=== PATIENT | female | born 1995 | race Caucasian/White ===

== ENCOUNTER 2018-11-15 19:37 | Observation (INO) ==
[2018-11-15] MEDS ORDERED: TYLENOL PO ONE (20:02)
[2018-11-15 20:21] LABS: BILIRUBIN URINE NEGATIVE (NEGATIVE); BLOOD URINE NEGATIVE (NEGATIVE); CLARITY SL. CLOUDY (CLEAR); COLOR YELLOW; GLUCOSE URINE NEGATIVE (NEGATIVE); KETONE URINE TRACE mg/dL (NEGATIVE); LEUKOCYTES URINE 2+ (NEGATIVE); NITRITE URINE POSITIVE (NEGATIVE); PH URINE 6.5; PROTEIN URINE 1+(30 mg/dL) mg/dL (NEGATIVE); SP GRAVITY URINE 1.015; UROBILINOGEN URINE 4 mg/dL
[2018-11-15 20:24] LABS: URINE BACTERIA 4+ /HFP; URINE CAST NONE SEEN /LPF; URINE CRYSTAL NONE SEEN /HPF; URINE EPITHELIAL CELLS <10 /HPF (<10); URINE RBC <10 /HPF (<10); URINE SOURCE CLEAN CATCH; URINE WBC 20-40 /HPF (<10); URINE YEAST NONE SEEN /HPF
[2018-11-15] MEDS ORDERED: NS 1,000 ML IV ONE ×2 (20:32→21:55)
[2018-11-15] MEDS ORDERED: ROCEPHIN 1 GM in NS 50 ML IV ONE (20:32)
--- NOTE | 2018-11-15 20:51 | PROVIDER DOCUMENTATION ---
This chart was entered by Catherine Eduardo Scribe, acting as scribe for Chhaya Michel CRNP. HPI-Female /OB/Breast - General Chief Complaint: UTI Symptoms Stated Complaint: UTI SX Time Seen by Provider: 11/15/18 20:25 Source: reports: patient Allergies/Adverse Reactions: Patient Allergies Allergy/AdvReac Type Severity Reaction Status Date / Time Penicillins Allergy HIVES Verified 05/24/18 08:21 Home Medications: Home Medication List Medication Instructions Recorded Confirmed Last Taken Type NK [No Home Medications] 11/15/18 11/15/18 Unknown History - History of Present Illness-Female /OB Nature of Presenting Problem: 23 yof c/o abd pain, fever, nausea, lower back pain and milky white/green discharge for 2-3 days w/foul odor. pt being tx for uti for 2 weeks with macrobid for 7 days and received iv antibiotics w/little relief. denies chills, v/d, and headache. pt has 1 sexual partner. she reports nausea, but denies vomiting. she reports the uti symptoms started 2-3 days ago. she reports the fever started last night. patient appears in pain on assessment otherwise no distress noted. Does patient report she is ?: No Location of complaint: reports: RLQ, LLQ Radiation: reports: generalized flank Quality of Pain: reports: aching, pressure Severity in ED: reports: moderate Onset/Duration: reports: 3 days ago Timing: reports: still present Context/Activities at Onset: reports: none Vaginal Symptoms: reports: discharge, foul odor Vaginal Bleeding Amount: Small/Light Urinary Symptoms: reports: dysuria, frequency, urgency, low back pain Related Symptoms: reports: no symptoms Leakage of Fluid: none Modifying Factors: improves with: nothing Associated Symptoms: reports: back/neck pain, fever/chills, nausea. denies: anxiety, chest pain, constipation, cough, diaphoresis, diarrhea, dizziness, fatigue, joint pain, loss of appetite, malaise, muscle aches, rash, seizure, sensory/motor loss, swelling/mass in abdomen, syncope, vomiting, weakness, trouble walking Similar Symptoms Previously?: Yes Recently seen or treated by another doctor?: Yes Review of Systems - Adult - REVIEW OF SYSTEMS - ADULT Constitutional: reports: see HPI, chills, fever. denies: fatique, night sweats Eyes: reports: no symptoms reported Ears, Nose, Mouth & Throat: reports: no symptoms reported Cardiovascular: reports: no symptoms reported. denies: chest pain, syncope Respiratory: reports: no symptoms reported Gastrointestinal: reports: see HPI, abdominal pain, nausea. denies: constipation, diarrhea, difficulty swallowing, vomiting Genitourinary: reports: see HPI, discharge (milky white/green), frequency, flank pain, frequent UTI's, other (foul odor from urine and discharge). denies: hematuria, hesitency, incontinence Musculoskeletal: reports: see HPI, back pain (low back). denies: muscle aches, muscle weakness, neck pain Integumentary: reports: no symptoms reported Neurological: reports: no symptoms reported. denies: dizziness/vertigo, headache/migraines Psychiatric: reports: no symptoms reported Endocrine: reports: no symptoms reported Hematologic/Lymphatic: reports: no symptoms reported Allergic/Immunologic: reports: no symptoms reported All Other Systems: Reviewed and Negative Past History - Adult - PAST MEDICAL HISTORY-ADULT Review of Records: reports: Old Records Reviewed, Nursing Assessment Review, Medications Reviewed, Social history reviewed & non-contributory. Major Childhood Illnesses: reports: denies history Cardiovascular: reports: denies history Respiratory: reports: denies history Gastrointestinal: reports: denies history Obstetrical/Gynecological: reports: denies history Genitourinary: reports: denies history Musculoskeletal: reports: denies history Neurological: reports: denies history Psychiatric: reports: depression Endocrine/Immune: reports: denies history Other Conditions: reports: denies history - PRIOR SURGERIES/PROCEDURES Surgical/Procedure History: reports: none - IMMUNIZATION STATUS Childhood Immunizations: See Nurse Assessment Flu Vaccine: See Nurse Assessment - FAMILY HISTORY Family History: reviewed, not pertinent - SOCIAL HISTORY Smoking: cigarettes, less than 1 pack/day Provider spent 3-5 mins advising pt. on dangers of tobacco.: Discussed manners to quit use, and f/u contacts for add'l counseling. Substance Use: marijuana (occ) Physical Exam-General - PHYSICAL EXAM-ADULT Initial Vital Signs Reviewed: Yes - CONSTITUTIONAL General Appearance: alert, mild distress (patient appears in pain). negative: anxious, lethargic, slow to respond, obtunded - EYES Eyes: PERRL/EOMI, pink conjunctivae - HEAD, EARS, NOSE, MOUTH & THROAT HENMT: normocephalic/atraumatic, moist mucous membranes, normal ENT inspection, pharynx normal - NECK Neck: non-tender, full range of motion, supple, normal inspection - RESPIRATORY Respiratory: chest non-tender, lungs clear, normal breath sounds, no pleuratic chest pain, no respiratory distress, no accessory muscle use - CARDIOVASCULAR Cardiovascular: normal peripheral pulses, regular rate, rhythm, no edema, no JVD - GASTROINTESTINAL (ABDOMEN) Abdominal Exam: normal bowel sounds, soft, no organomegaly, no pulsatile mass, tenderness (RLQ and LLQ). negative: non tender, guarding, rigid - LYMPHATIC Lymphatic: no adenopathy - MUSCULOSKELETAL Back Exam: normal inspection, no vertebral tenderness, CVA tenderness. negative: decreased range of motion, ecchymosis, swelling Extremity: normal range of motion, non-tender, normal inspection Peripheral Pulses: radial (R): 2+, radial (L): 2+ - SKIN Integumentary: normal color, normal turgor, warm/dry, warm - NEUROLOGIC Neurologic: grossly normal, no motor/sensory deficits - PSYCHIATRIC Psych/Mental Status: normal mood/affect, normal thought content, normal thought process, oriented x 3 Progress - PLAN OF CARE/RESULTS Progress/Plan/Lab Results: Vital Signs - 8 hr 11/15/18 19:55 Temperature 101.3 F H Pulse Rate 134 H Respiratory Rate 20 Blood Pressure 125/67 O2 Sat by Pulse Oximetry 99 Laboratory Results - last 24 hr 11/15/18 11/15/18 20:00 20:00 Urine Source CLEAN CATCH Urine Color YELLOW Urine Clarity SL. CLOUDY A Urine pH 6.5 Ur Specific Eastman 1.015 Urine Protein 1+(30 mg/dL) A Urine Ketones TRACE Urine Blood NEGATIVE Urine Nitrite POSITIVE A Urine Bilirubin NEGATIVE Urine Urobilinogen 4 Urine Microscopic RBC <10 Urine WBC 2+ A Urine Microscopic WBC 20-40 A Ur Epithelial Cells <10 Urine Crystals NONE SEEN Urine Bacteria 4+ Urine Casts NONE SEEN Urine Yeast NONE SEEN Urine Glucose NEGATIVE Urine Test NEGATIVE Orders Category Date Time Status CBC WITH DIFF [HEME] Stat Lab 11/15/18 20:32 Ordered COMPREHENSIVE METABOLIC PANEL [CHEM] Stat Lab 11/15/18 20:32 Uncollected TEST-URINE [PREG] Stat Lab 11/15/18 20:[address] W/POSS RFLX CULT [URINALYSIS] Stat Lab 11/15/18 20:00 Completed URINE CULTURE [RM] Routine Lab 11/15/18 20:24 Ordered 0.9% Sodium Chloride Inj [Ns] 1,000 ml Med 11/15/18 20:32 Active IV 999 mls/hr Acetaminophen [Tylenol] Med 11/15/18 20:02 Discontinued 1,000 mg PO NOW ONE CefTRIAXONE [Rocephin] 1 gm Med 11/15/18 20:32 Active 0.9% Sodium Chloride Inj [Ns] 50 ml IV NOW discussed plan of care with patient- she understands and agrees with plan of care and denies any questions at this time. Departure - Departure Referrals and Follow-Ups: Kalin Lyn [Primary Care Provider] - Attestation - Physician/ BRENNAN Attestation Patient care was provided by Advanced Practice Provider:: Yes Advanced Practice Provider:: Chhaya Michel Advanced Practice Provider documentation review:: The Mid-level provider documentation, treatment plan and medical decision making was reviewed by the physician who agrees with all treatment and medical decision making by the MLP. The physician spent face to face time with patient:: No Advanced Practice Provider documentation review:: Supervising physician onsite and consulted in the evaluation and care of this patient. The physician did not have a face to face encounter with the patient. This chart was documented by the indicated scribe, (Catherine Eduardo Scribe) and accurately reflects the services I performed and decisions made by me, Chhaya Michel CRNP, as attested by the provider's signature.
[2018-11-15 21:20] LABS: BASO# 0.05 X1000 (0.0-0.2); BASO% 0.3 % (0.0-0.8); EOS# 0.03 X1000 (0.0-0.7); EOS% 0.2 % (0.0-10.0); HEMATOCRIT 37.9 % (37.0-47.0); HEMOGLOBIN 12.5 g/dL (12.0-16.0); IMM GRAN# 0.05 X1000 (0.0-0.04); IMM GRAN% 0.3 % (0.0-0.5); LYMPH# 1.56 X1000 (1.2-3.4); MCH 28.4 PG (27-31); MCV 86.1 FL (81-99); MONO# 1.56 X1000 (0.11-0.59); MPV 9.1 FL (7.4-10.4); NEUT# 14.18 X1000 (1.4-6.5); NEUT% 81.2 % (42.2-75.2); PLT 285 X1000 (130-400); RDW 14.4 % (11.5-14.5); WBC 17.43 X1000 (4.8-10.8)
[2018-11-15 21:32] LABS: AGAP 11; ALBUMIN 4.6 g/dL (3.5-5.0); ALKALINE PHOSPHATASE 107 U/L (32-104); BUN 9 mg/dL (8-22); CALCIUM 9.1 mg/dL (8.8-10.2); CHLORIDE 99 mmol/L (98-107); COSMO 271; CREATININE 0.7 mg/dL (0.5-0.9); ESTIMATED GFR > 60; GLUCOSE 146 mg/dL (70-104); GOT 26 U/L (10-30); GPT 52 U/L (10-36); POTASSIUM 4.4 mmol/L (3.5-5.1); SODIUM 135 mmol/L (136-145); TCO2 25 mmol/L (25-35); TOTAL PROTEIN 7.8 g/dL (6.3-8.3)
[2018-11-15] MEDS ORDERED: ZOFRAN IV PRN (21:55)
[2018-11-15 22:02] LABS: BANDS 1 % (0-1); LYMPHS 11 % (21-51); MONO 8 % (1-9); SEGS 80 % (42-75)
[2018-11-15 22:03] LABS: HYPOCHROM 1+
[2018-11-16] MEDS: LEVAQUIN 750 MG/D5W 750 MG/150 ML IVPB IV SCH ×3 (01:25→23:58)
[2018-11-16] MEDS: MORPHINE IV PRN ×3 (02:18→20:48)
[2018-11-16 02:23] LABS: INR 0.94; PROTIME 13.1 Seconds (11.0-16.0)
[2018-11-16 02:24] LABS: PTT 43.5 Seconds (22.3-41.8)
--- NOTE | 2018-11-16 09:02 | Diag Imaging Result Doc PS360 ---
EXAM: US ABDOMEN-COMPLETE 11/16/2018 HISTORY: lower abdominal pain TECHNIQUE: Abdominal ultrasound COMMENT: The pancreatic head and body are normal in appearance. The aorta and inferior vena cava are within normal limits. The liver is unremarkable. The gallbladder contains multiple small stones without evidence of para cholecystic fluid or wall thickening. There is no sonographic Ambriz sign. The common bile duct measures less than 4 mm. The kidneys are without evidence of hydronephrosis or mass. The spleen is not enlarged. There are no abnormal fluid collections. IMPRESSION: Cholelithiasis. Electronically signed by Prateek Hastings 11/16/2018 9:00 AM
[2018-11-16 09:32] LABS: BASO# 0.07 X1000 (0.0-0.2); BASO% 0.5 % (0.0-0.8); EOS# 0.17 X1000 (0.0-0.7); EOS% 1.2 % (0.0-10.0); HEMATOCRIT 35.7 % (37.0-47.0); HEMOGLOBIN 11.6 g/dL (12.0-16.0); IMM GRAN# 0.05 X1000 (0.0-0.04); IMM GRAN% 0.3 % (0.0-0.5); LYMPH# 2.83 X1000 (1.2-3.4); LYMPH% 19.5 % (20.5-51.1); MCH 28.5 PG (27-31); MCHC 32.5 g/dL (33-37); MCV 87.7 FL (81-99); MONO# 1.64 X1000 (0.11-0.59); MONO% 11.3 % (1.7-9.3); MPV 9.1 FL (7.4-10.4); NEUT# 9.72 X1000 (1.4-6.5); NEUT% 67.2 % (42.2-75.2); PLT 269 X1000 (130-400); RBC 4.07 XMIL (4.2-5.4); RDW 14.3 % (11.5-14.5); WBC 14.48 X1000 (4.8-10.8)
[2018-11-16] MEDS ORDERED: FLAGYL PO ONE (09:48)
[2018-11-16 09:51] LABS: AMYLASE 30 U/L (20-200); LIPASE 13 U/L (13-60)
[2018-11-16 09:54] LABS: AGAP 8; ALKALINE PHOSPHATASE 94 U/L (32-104); BUN 7 mg/dL (8-22); CALCIUM 8.9 mg/dL (8.8-10.2); CHLORIDE 102 mmol/L (98-107); COSMO 268; CREATININE 0.6 mg/dL (0.5-0.9); ESTIMATED GFR > 60; GLUCOSE 102 mg/dL (70-104); GOT 22 U/L (10-30); GPT 47 U/L (10-36); POTASSIUM 4.9 mmol/L (3.5-5.1); SODIUM 135 mmol/L (136-145); TCO2 25 mmol/L (25-35); TOTAL PROTEIN 7.6 g/dL (6.3-8.3)
[2018-11-16 10:05] LABS: UR AMPHETAMINES QUAL NONE DETECTED (NONE DETECT); UR BARBITUATES QUAL NONE DETECTED (NONE DETECT); UR BENZODIAZEPIN QUAL NONE DETECTED (NONE DETECT); UR COCAINE QUAL NONE DETECTED (NONE DETECT); UR METHADONE QUAL NONE DETECTED (NONE DETECT); UR METHAMPHETAMINE QUAL NONE DETECTED (NONE DETECT); UR OPIATES QUAL PRESUMPTIVE POSITIVE (NONE DETECT); UR OXYCODONE QUAL NONE DETECTED (NONE DETECT)
[2018-11-16 10:06] LABS: UR CANNABINOIDS QUAL PRESUMPTIVE POSITIVE (NONE DETECT); UR PCP QUAL PRESUMPTIVE POSITIVE (NONE DETECT); UR PROPOXYPHENE QUAL NONE DETECTED (NONE DETECT); UR TCA QUAL NONE DETECTED (NONE DETECT)
[2018-11-16] MEDS ORDERED: DULCOLAX PO ONE (10:12)
[2018-11-16] MEDS: PERICOLACE PO SCH ×2 (11:53→20:38)
--- NOTE | 2018-11-16 13:13 | Diag Imaging Result Doc PS360 ---
EXAM: CT ABD/PELVIS W/PO AND IV CON 11/16/2018 HISTORY: abd pain TECHNIQUE: This exam was performed using automated exposure control, adjustment of mA or kV according to patient size, and/or use of iterative reconstruction technique. COMMENT: There is minimal dependent atelectasis in the lung bases posteriorly. The liver, spleen, adrenal glands, gallbladder, and pancreas are within normal limits. The kidneys are without evidence of hydronephrosis or mass. There is no evidence of bowel obstruction. The aorta is not distended. Pelvis: There is no significant free fluid. There is a large amount of stool in the rectosigmoid colon. There are multiple cystic appearing structures in the right adnexa one of which measures up to 3 cm in diameter. There is no evidence of appendicitis. The urinary bladder is not distended. There is no evidence of acute bony abnormality. IMPRESSION: Right ovarian cysts. Constipation. Electronically signed by Prateek Hastings 11/16/2018 1:11 PM
--- NOTE | 2018-11-16 13:34 | HISTORY AND PHYSICAL ---
PRIMARY CARE PROVIDER: Dr. Kalin Lyn. CHIEF COMPLAINT: Abdominal pain, fever, chills, nausea, lower back pain and vaginal discharge. HISTORY OF PRESENT ILLNESS: Ms Arianna Clancy is a 23-year-old, female with a medical history of depression, anxiety with panic disorder, tobacco abuse, marijuana use, and most recently 1 month ago quit smoking crystal meth. She is now here with complaints of a 2 to 3 day history of abdominal pain in the left lower quadrant, a fever that started last night, nausea, lower back pain, abdominal pain with urination, milky white green discharge and foul odor. She was recently given a 2-week prescription for Macrobid, only had 3 or 4 days worth with little relief. She has a history of having Trichomonas. Currently says that she has only got 1 sex partner and she has only had a boyfriend for 1 month. Last bowel movement was 2 days ago. She has been unable to pass gas until the last 12 hours, and the abdominal pain has improved since then. Her normal bowel movement pattern is every other day. We will do abdominal CT because her ultrasound only shows small gallstones. PAST MEDICAL HISTORY: 1. Depression. 2. Anxiety with panic disorder. 3. History of a Trichomonas infection in April 2018. SURGICAL HISTORY: Tonsillectomy. SOCIAL HISTORY: Less than a half pack per day smoker for the last 3 years. She started smoking at the age of 20. Denies alcohol. Smokes marijuana. She smoked crystal meth for a year, but no crystal meth for 1 month now. Boyfriend, who is at the bedside, also has only been her boyfriend for about 1 month. FAMILY HISTORY: Mother had diabetes, ovarian cancer. Father's side of the family diabetes with a grandmother who had leukemia and ovarian cancer as well. ALLERGIES: Penicillin; apparently it causes rash, hives, swelling. HOME MEDICATIONS: None. REVIEW OF SYSTEMS: Fourteen point review of systems are complete and all are negative, except for those mentioned above in the HPI. PHYSICAL EXAMINATION: VITAL SIGNS: Temperature 97.6 degrees, heart rate 87, respiratory rate 18, blood pressure 92/53, O2 saturation 100% on room air. GENERAL: Ms. Arianna Clancy is a 23-year-old, female. She is in no acute distress. She is able to answer questions appropriately. HEENT: Atraumatic, normocephalic. Pupils equal, round, reactive to light. Extraocular movements intact. Mucous membranes are moist. NECK: Trachea midline. CARDIOVASCULAR: S1, S2. Regular rate and rhythm. No rubs, gallops, murmurs. No lower extremity edema. +2 dorsalis and radial pulses. Negative JVD or carotid bruits. PULMONARY: Clear to auscultation. Bilateral breath sounds. No accessory muscle use or work of breathing noted. GI: Soft, tender in the left lower quadrant. Positive bowel sounds x4. EXTREMITIES: Moves all extremities equally. Full range of motion. NEUROLOGIC: A and O x3. Follows commands. Sensory is intact. SKIN: Warm, dry, intact. LABORATORY DATA: White blood cells 14,000, hemoglobin 11, hematocrit 35, platelet count 269. Sodium 135, potassium 4.9, BUN 7, creatinine 0.6. Glucose 102, calcium 8.9, bilirubin 0.50. AST 22, ALT 47, albumin 4.0, amylase 30, lipase 13, lactate 0.5. Urinalysis: Cloudy, 1+ protein, positive nitrites, 2+ white blood cells, 20-40 microscopic white blood cells, and 4+ bacteria. test negative. Urine drug screen positive for opiates, but she has had morphine while she is here. It is also positive for phencyclidine that tends to be mixed with cannabinoids. It is also known as PCP, so PCP mixed with marijuana: It is unclear if she knows that she has had this or not. IMAGING: Abdominal ultrasound: Cholelithiasis. The gallbladder contains multiple small stones without evidence of pericholecystic fluid or wall thickening. ASSESSMENT AND PLAN: 1. Left lower quadrant abdominal pain with nausea. It could be constipation. She only has bowel movements every other day. She states that the pain has actually eased up since she has been able to have flatulence. Will add some Magaly-Colace and maybe a 1-time dose of bisacodyl. Currently on clear liquid diet. 2. Urinary tract infection, symptomatic. Failed outpatient treatment. She had already been on Macrobid for at least 3 or 4 days without relief. It is nitrite positive. Antibiotics include Levaquin and Rocephin. 3. History of Trichomonas infection back in April of 2018. It has not resulted as positive this time, but given her discharge symptoms and foul odor, I have added chlamydia and gonorrhea, urine screening with color being green. So, we will go ahead and treat her as if there was a Trichomonas infection with a 1-time dose of 2 g of Flagyl. 4. Anxiety, depression. No home medications. 5. Drug abuse. She smokes marijuana that could possibly have been laced with PCP as her urine has tested positive for PCP. Cessation was discussed. 6. Tobacco abuse. She has no wishes to quit at this time. She said she only smokes around 2 or 3 cigarettes a day. Cessation was discussed. Dictated by CLEMENTE Vincent for [facility] Ochoa MD Addendum: Patient seen and examined by myself. Agree with CLEMENTE note. It reflects my assessment and plan. Patient is being admitted to hospital for UTI failed outpatient treatment. Will order urine culture and start Levaquin and Ceftriaxone. Will treat trichomoniasis and patient advised about abusing drugs cc: CLEMENTE Vincent MD [facility]
[2018-11-16] MEDS ORDERED: ROCEPHIN 1 GM in NS 50 ML IV SCH (21:00)
[2018-11-17 05:48] VITALS: BP 110/60
[2018-11-17] MEDS: PERICOLACE PO SCH (08:19)
[2018-11-17 10:38] LABS: BASO# 0.06 X1000 (0.0-0.2); BASO% 0.9 % (0.0-0.8); EOS# 0.16 X1000 (0.0-0.7); EOS% 2.3 % (0.0-10.0); HEMATOCRIT 33.7 % (37.0-47.0); HEMOGLOBIN 10.9 g/dL (12.0-16.0); IMM GRAN# 0.01 X1000 (0.0-0.04); IMM GRAN% 0.1 % (0.0-0.5); LYMPH# 2.01 X1000 (1.2-3.4); LYMPH% 28.6 % (20.5-51.1); MCH 28.2 PG (27-31); MCHC 32.3 g/dL (33-37); MCV 87.1 FL (81-99); MONO# 0.82 X1000 (0.11-0.59); MONO% 11.7 % (1.7-9.3); MPV 9.2 FL (7.4-10.4); NEUT# 3.96 X1000 (1.4-6.5); NEUT% 56.4 % (42.2-75.2); PLT 256 X1000 (130-400); RBC 3.87 XMIL (4.2-5.4); RDW 14.2 % (11.5-14.5); WBC 7.02 X1000 (4.8-10.8)
[2018-11-17 11:58] LABS: SEGS 62 % (42-75)
[2018-11-17 11:59] LABS: EOS 2 % (1-10); LYMPHS 29 % (21-51); MONO 7 % (1-9)
--- NOTE | 2018-11-17 14:11 | DISCHARGE SUMMARY ---
ADMISSION DATE: 11/16/2018 DISCHARGE DATE: 11/17/2018 ADMISSION DIAGNOSES: 1. Left lower quadrant abdominal pain with nausea. 2. Urinary tract infection. Symptomatic. 3. History of Trichomonas. 4. Anxiety and depression. 5. Drug abuse. 6. Tobacco abuse. DISCHARGE DIAGNOSES: 1. Lower quadrant abdominal pain with nausea secondary to constipation. 2. Urinary tract infection. Symptomatic. Going home on Levaquin p.o. 3. History of Trichomonas back in April 2018 with complaints of discharge symptoms that were going to be treated; they were treated with 2 g of Flagyl on this admit. 4. Anxiety, depression. No home medications. 5. History of drug abuse. Highly advise to continue with her cessation of drug abuse. 6. Tobacco abuse. Cessation discussed. CONSULTATIONS: None. SURGERIES AND PROCEDURES: None. HOSPITAL COURSE: Ms. Arianna Clancy is a 23-year-old female, with a medical history of depression and anxiety. Presented here with complaints of abdominal pain in left lower quadrant, fever, chills, nausea, lower back pain, and vaginal discharge. CT scan showed that she had a little bit of constipation. She also had a right ovarian cyst, but there is no pain on that side. It had been a couple of days since she had a bowel movement. She also had signs and symptoms of urinary tract infection for which she apparently failed outpatient treatment, and so she received some IV antibiotics here that included Levaquin and Rocephin. Constipation was treated with Magaly-Colace and a 1 time dose of bisacodyl, and she was able to have a bowel movement while she was here. DISCHARGE VITAL SIGNS: Temperature 97.8 degrees, heart rate 71, respiratory rate 18, blood pressure 110/60, O2 saturation 98% on room air. DISCHARGE LAB DATA: White blood cells 7000, hemoglobin 10, hematocrit 33, platelet count 256,000. No current BMP. IMAGING: She had abdominal ultrasound which showed cholelithiasis, small gallstones. She had abdominopelvic CT which showed right ovarian cyst and constipation. DISCHARGE MEDICATIONS: Levaquin 750 mg p.o. daily. DISCHARGE DIET: Regular. DISCHARGE ACTIVITY: As tolerated. DISCHARGE PHYSICIAN FOLLOWUP: Dr. Kalin Lyn. DISCHARGE INSTRUCTIONS: If your condition changes, contact your physician and/or return to the emergency department. Changes may include, but are not limited to, shortness of breath, increased fatigue, excessive bleeding, unexplained weight loss or gain, unmanageable pain, signs or symptoms of infection. DISCHARGE DISPOSITION: Home. Dictated by CLEMENTE Vincent for Home Ochoa MD Addendum: Patient seen and examined by myself. Agree with CLEMENTE note. It reflects my assessment and plan. Patient is being discharged from hospital in stable condition. Will be seen by PCP in a week. cc: CLEMENTE Vincent MD Robert Hall, MD [facility]
== END 2018-11-17 12:47 | disposition home or self-care (01) ==
LOC: P.ED 19:37 → INTOOBSV 11-16 01:14 → P.MEDSURG 11-16 01:14
PROVIDERS: ATTEND Internal Medicine
CPT/HCPCS: 74177; 76700; 80053; 80104; 80301; 80305; 81001; 81025; 82150; 82550; 83605; 83690; 83735; 84484; 85025; 85610; 85730; 87040; 87077; 87088; 87186; 87491; 87591; A9270; G0431; G0434; G0477; J0696; J1956; J2270; J2405; J7030; Q9967